=== PATIENT | female | born 1985 | race Caucasian/White ===

== ENCOUNTER 2017-12-06 12:15 | Emergency (ER) | payer MEDICAID ==
[~2017-12-06] VITALS: Ht 152.4 cm; Wt 56.8 kg
[2017-12-06 12:19] VITALS: BP 142/73; Ht 152.4 cm; Wt 56.8 kg
[2017-12-06] MEDS ORDERED: LEXAPRO10 MG PO (12:25)
[2017-12-06] MEDS ORDERED: TRIAZADONE PO (12:25)
[2017-12-06] MEDS ORDERED: BUPROPION XL300 MG PO (12:25)
[2017-12-06] MEDS ORDERED: VALIUM5 MG PO (12:26)
== END 2017-12-06 15:57 | disposition home or self-care (01) ==
LOC: D.ER 12:15
DX: T76.21XA Adult sexual abuse, suspected, initial encounter (principal)